=== PATIENT | female | born 1965 | race Caucasian/White ===

== ENCOUNTER 2022-03-14 18:55 | Emergency (ER) | payer OTHER ==
[~2022-03-14 18:55] MED LIST: AMOXICILLIN500 MG PO; ARTHRITIS PAIN50 GM TOP; BUSPAR5 MG PO; CLARITIN10 MG PO; CYCLOBENZAPRINE10 MG PO; DAYTRANA1 EAC1 PO; DICLOFENAC SODI75 MG PO; DOXEPIN HCL25 MG PO; EFFEXOR-XR 75 M75 MG PO; ELAVIL25 MG PO; ESTRACE1 MG PO; FLEXERIL10 MG PO; FLEXERIL5 MG PO; FLONASE ALLERG9.9 ML; GABAPENTIN600 MG PO; IMITREX100 MG PO; LAMICTAL100 MG PO; LIDOCAINE30 G1 TOP; MOBIC7.5 MG PO; NEURONTIN300 MG PO; NORCO 5-325 TA1 EAC1 PO; NORCO 5-325 TA1 EACH PO; NORCO 5/3251 EACH PO; PRILOSEC20 MG PO; PROGESTERONE100 MG PO; REXULTI2 MG PO; SINGULAIR10 MG PO; SYNTHROID50 MCG PO; TIZANIDINE HCL2 MG PO; TOPAMAX50 MG PO; TOPROL XL 50 MG50 MG PO; WELLBUTRIN XL150 MG PO
== END 2022-03-14 21:39 | disposition home or self-care (01) ==
LOC: FER 18:55
DX: S01.01XA Laceration without foreign body of scalp, initial encounter (principal); S09.90XA Unspecified injury of head, initial encounter; F10.99 Alcohol use, unspecified with unspecified alcohol-induced disorder; E03.9 Hypothyroidism, unspecified; Z79.890 Hormone replacement therapy; Z87.891 Personal history of nicotine dependence; W01.198A Fall on same level from slipping, tripping and stumbling with subsequent striking against other object, initial encounter; Z28.310 Unvaccinated for COVID-19
CPT/HCPCS: 70450; 72125